=== PATIENT | female | born 1955 | race Caucasian/White ===

== ENCOUNTER 2021-03-08 11:23 | Inpatient (IN) ==
[2021-03-08] MEDS ORDERED: DEXAMETHASONE 10 MG/1 ML VIAL IV SCH (16:30)
[2021-03-08] MEDS ORDERED: PALONOSETRON 0.25 MG/5 ML VIAL IV SCH (16:30)
[2021-03-08] MEDS ORDERED: LEUCOVORIN IV ONE (17:00)
[2021-03-08] MEDS ORDERED: DEXTROSE 5% IV ONE ×2 (17:00)
[2021-03-08] MEDS ORDERED: OXALIPLATIN IV ONE (17:00)
[2021-03-08] MEDS ORDERED: FLUOROURACIL IV ONE (17:00)
[2021-03-09] MEDS ORDERED: MAGNESIUM HYDROXIDE SUSP 30 ML UDCUP PO PRN (00:31)
[2021-03-09] MEDS ORDERED: MYLANTA/LIDO VISC 2:1 300 ML BOTTLE SWISH/SWAL PRN (00:31)
[2021-03-09] MEDS ORDERED: diphenhydrAMINE CAP 25 MG CAPSULE PO PRN (00:31)
[2021-03-09] MEDS ORDERED: MYLANTA/LIDO VISC 2:1 300 ML BOTTLE SWISH/SPIT PRN (00:31)
[2021-03-09] MEDS ORDERED: ALPRAZolam 0.25 MG TABLET PO PRN (00:31)
[2021-03-09] MEDS ORDERED: guaiFENesin 200 MG/10 ML UDCUP PO PRN (00:31)
[2021-03-09] MEDS ORDERED: PROMETHAZINE INJ 25 MG in SODIUM CHLORIDE 0.9% 50 ML IV PRN (00:31)
[2021-03-09] MEDS ORDERED: chlorproMAZINE INJ 25 MG in SODIUM CHLORIDE 0.9% 100 ML IV PRN (00:31)
[2021-03-09] MEDS ORDERED: ALUMINUM/MAGNES/SIMETH MAX STR 30 ML UDCUP PO PRN (00:31)
[2021-03-09] MEDS ORDERED: ONDANSETRON 4 MG/2 ML VIAL IV PRN (00:31)
[2021-03-09] MEDS ORDERED: LACTULOSE 20 GM/30 ML UDCUP PO PRN (00:31)
[2021-03-09] MEDS ORDERED: BENZTROPINE 2 MG/2 ML AMP IV PRN (00:31)
[2021-03-09] MEDS ORDERED: traMADol 50 MG TABLET PO PRN (00:31)
[2021-03-09] MEDS ORDERED: ACETAMINOPHEN 325 MG TABLET PO PRN (00:31)
[2021-03-09] MEDS ORDERED: LOPERAMIDE 2 MG CAPSULE PO PRN (00:31)
[2021-03-09] MEDS ORDERED: chlorproMAZINE INJ 50 MG in SODIUM CHLORIDE 0.9% 100 ML IV PRN (00:31)
[2021-03-09] MEDS ORDERED: chlorproMAZINE 25 MG TABLET PO PRN (00:31)
[2021-03-09] MEDS: TEMAZEPAM 7.5 MG CAPSULE PO PRN ×2 (00:43→21:37)
[2021-03-09] MEDS: LOPERAMIDE 2 MG CAPSULE PO PRN ×3 (00:52→12:42)
[2021-03-09] MEDS ORDERED: ceFAZolin 2,000 MG/50 ML DUPLEX IV ONE (13:20)
[2021-03-10] MEDS ORDERED: ceFAZolin 2,000 MG/50 ML DUPLEX IV ONE (07:00)
[2021-03-10] MEDS ORDERED: LACTATED RINGERS 1,000 ML IV SCH (09:30)
[2021-03-10] MEDS ORDERED: ONDANSETRON 4 MG/2 ML VIAL ONE (10:08)
[2021-03-10] MEDS ORDERED: SODIUM CHLORIDE 0.9% 100 ML IV ONE (10:08)
[2021-03-10] MEDS ORDERED: propofoL 200 MG/20 ML VIAL IV ONE (10:08)
[2021-03-10] MEDS ORDERED: LIDOCAINE 2% 5 ML VIAL ONE (10:08)
[2021-03-10] MEDS ORDERED: MIDAZOLAM 2 MG/2 ML VIAL ONE (10:08)
[2021-03-10] MEDS ORDERED: fentaNYL 100 MCG/2 ML VIAL ONE (10:08)
[2021-03-10] MEDS ORDERED: TISSUE ADHESIVE 1 EACH APPLICATOR TOP ONE (10:11)
[2021-03-10] MEDS ORDERED: LIDOCAINE 1%/EPI INJ 20 ML VIAL ONE (10:11)
[2021-03-10] MEDS ORDERED: HEPARIN 5,000 UNIT/1 ML VIAL ONE (10:11)
[2021-03-10] MEDS ORDERED: BUPIVACAINE MPF 0.25% 30 ML VIAL ONE (10:11)
[2021-03-10] MEDS ORDERED: ePHEDrine 50 MG/ML VIAL ONE (10:38)
[2021-03-10] MEDS ORDERED: PHENYLEPHRINE 1 MG/10 ML SYRINGE IV ONE (10:45)
[2021-03-10 18:45] VITALS: BP 138/68
== END 2021-03-10 20:55 | disposition home or self-care (01) | DRG 829 ==
LOC: N.TELES 15:01
PROVIDERS: ADMIT Specialist; ATTEND Specialist

== ENCOUNTER 2021-04-05 13:57 | Inpatient (IN) ==
[2021-04-05] MEDS ORDERED: guaiFENesin 200 MG/10 ML UDCUP PO PRN (14:37)
[2021-04-05] MEDS ORDERED: ACETAMINOPHEN 325 MG TABLET PO PRN (14:37)
[2021-04-05] MEDS ORDERED: MYLANTA/LIDO VISC 2:1 300 ML BOTTLE SWISH/SPIT PRN (14:37)
[2021-04-05] MEDS ORDERED: PROMETHAZINE INJ 25 MG in SODIUM CHLORIDE 0.9% 50 ML IV PRN (14:37)
[2021-04-05] MEDS ORDERED: MAGNESIUM HYDROXIDE SUSP 30 ML UDCUP PO PRN (14:37)
[2021-04-05] MEDS ORDERED: diphenhydrAMINE CAP 25 MG CAPSULE PO PRN (14:37)
[2021-04-05] MEDS ORDERED: traMADol 50 MG TABLET PO PRN (14:37)
[2021-04-05] MEDS ORDERED: ALUMINUM/MAGNES/SIMETH MAX STR 30 ML UDCUP PO PRN (14:37)
[2021-04-05] MEDS ORDERED: ALPRAZolam 0.25 MG TABLET PO PRN (14:37)
[2021-04-05] MEDS ORDERED: LACTULOSE 20 GM/30 ML UDCUP PO PRN (14:37)
[2021-04-05] MEDS ORDERED: LOPERAMIDE 2 MG CAPSULE PO PRN (14:37)
[2021-04-05] MEDS ORDERED: ONDANSETRON 4 MG/2 ML VIAL IV PRN (14:37)
[2021-04-05] MEDS ORDERED: MYLANTA/LIDO VISC 2:1 300 ML BOTTLE SWISH/SWAL PRN (14:37)
[2021-04-05] MEDS ORDERED: DEXTROSE 5% IV ONE (15:00)
[2021-04-05] MEDS ORDERED: PALONOSETRON 0.25 MG/5 ML VIAL IV ONE (15:00)
[2021-04-05] MEDS ORDERED: OXALIPLATIN IV ONE (15:00)
[2021-04-05] MEDS ORDERED: LEUCOVORIN INJ 700 MG in DEXTROSE 5% 250 ML IV ONE (15:00)
[2021-04-05] MEDS ORDERED: DEXAMETHASONE 10 MG/1 ML VIAL IV SCH (15:00)
[2021-04-05] MEDS: LOPERAMIDE 2 MG CAPSULE PO PRN (21:07)
[2021-04-05] MEDS: TEMAZEPAM 7.5 MG CAPSULE PO PRN (21:07)
[2021-04-06] MEDS: ESCITALOPRAM 10 MG TABLET PO SCH (11:38)
[2021-04-06] MEDS: LOPERAMIDE 2 MG CAPSULE PO PRN ×2 (11:50→21:45)
[2021-04-06] MEDS: TEMAZEPAM 7.5 MG CAPSULE PO PRN (21:45)
[2021-04-07] MEDS: ESCITALOPRAM 10 MG TABLET PO SCH (09:52)
[2021-04-07] MEDS: LOPERAMIDE 2 MG CAPSULE PO PRN (09:55)
[2021-04-07 15:00] VITALS: BP 157/81
[2021-04-07] MEDS ORDERED: HEPARIN LOCK FLUSH 500 UNIT/5 ML SYRINGE IV ONE (15:28)
== END 2021-04-07 15:59 | disposition home or self-care (01) | DRG 375 ==
LOC: N.TELES 14:15
PROVIDERS: ADMIT Specialist; ATTEND Specialist

== ENCOUNTER 2021-04-19 10:12 | Inpatient (IN) ==
[2021-04-19] MEDS ORDERED: PALONOSETRON 0.25 MG/5 ML VIAL IV ONE (12:00)
[2021-04-19] MEDS ORDERED: DEXAMETHASONE 10 MG/1 ML VIAL IV ONE (12:00)
[2021-04-19] MEDS ORDERED: guaiFENesin 200 MG/10 ML UDCUP PO PRN (12:33)
[2021-04-19] MEDS ORDERED: ALPRAZolam 0.25 MG TABLET PO PRN (12:33)
[2021-04-19] MEDS ORDERED: chlorproMAZINE INJ 50 MG in SODIUM CHLORIDE 0.9% 100 ML IV PRN (12:33)
[2021-04-19] MEDS ORDERED: MAGNESIUM HYDROXIDE SUSP 30 ML UDCUP PO PRN (12:33)
[2021-04-19] MEDS ORDERED: ALUMINUM/MAGNES/SIMETH MAX STR 30 ML UDCUP PO PRN (12:33)
[2021-04-19] MEDS ORDERED: chlorproMAZINE INJ 25 MG in SODIUM CHLORIDE 0.9% 100 ML IV PRN (12:33)
[2021-04-19] MEDS ORDERED: LOPERAMIDE 2 MG CAPSULE PO PRN (12:33)
[2021-04-19] MEDS ORDERED: ONDANSETRON 4 MG/2 ML VIAL IV PRN (12:33)
[2021-04-19] MEDS ORDERED: LACTULOSE 20 GM/30 ML UDCUP PO PRN (12:33)
[2021-04-19] MEDS ORDERED: ACETAMINOPHEN 325 MG TABLET PO PRN (12:33)
[2021-04-19] MEDS ORDERED: traMADol 50 MG TABLET PO PRN (12:33)
[2021-04-19] MEDS ORDERED: chlorproMAZINE 25 MG TABLET PO PRN (12:33)
[2021-04-19] MEDS ORDERED: BENZTROPINE 2 MG/2 ML AMP IV PRN (12:33)
[2021-04-19] MEDS ORDERED: PROMETHAZINE INJ 25 MG in SODIUM CHLORIDE 0.9% 50 ML IV PRN (12:33)
[2021-04-19] MEDS ORDERED: MYLANTA/LIDO VISC 2:1 300 ML BOTTLE SWISH/SWAL PRN (12:33)
[2021-04-19] MEDS ORDERED: MYLANTA/LIDO VISC 2:1 300 ML BOTTLE SWISH/SPIT PRN (12:33)
[2021-04-19] MEDS ORDERED: OXALIPLATIN IV ONE (13:00)
[2021-04-19] MEDS ORDERED: LEUCOVORIN INJ 700 MG in DEXTROSE 5% 250 ML IV ONE (13:00)
[2021-04-19] MEDS ORDERED: FLUOROURACIL IV ONE (13:00)
[2021-04-19] MEDS ORDERED: DEXTROSE 5% IV ONE (13:00)
[2021-04-19] MEDS: diphenhydrAMINE CAP 25 MG CAPSULE PO PRN (15:39)
[2021-04-19] MEDS: TEMAZEPAM 7.5 MG CAPSULE PO PRN (20:52)
[2021-04-20 05:43] LABS: Basophils % 0.3 % (0.0-0.8); Hematocrit 29.7 VOL% (35.7-47.0); Hemoglobin 9.5 GM/DL (12.0-16.0); Immature Granulocytes % 0.3 %; Immature Granulocytes Absolute 0.01 #; Lymphocytes # 0.3 10*3/uL (1.4-4.0); Lymphocytes % 9.5 % (21.3-54.2); Mean Platelet Volume 9.9 FL (9.6-12.0); Monocytes % 6.7 % (1.7-12.7); Neutrophils % 83.2 % (38.7-73.9); Platelet Count 156 T/CUMM (130-400); Red Blood Count 3.23 MC/CUMM (3.8-5.5); Red Cell Distribution Width 17.4 % (9.3-17.3); White Blood Count 3.6 T/CUMM (4-12)
[2021-04-20 05:55] LABS: Alanine Aminotransferase 47 U/L (13-56); Albumin 2.9 G/DL (3.4-5.0); Alkaline Phosphatase 81 U/L (45-117); Aspartate Amino Transferase 39 U/L (0-37); Bilirubin,Total < 0.39 MG/DL (0.20-1.00); Blood Urea Nitrogen 16 MG/DL (7-18); Calcium 8.3 MG/DL (8.5-10.1); Carbon Dioxide 20 MMOL/L (21-32); Estimated Glom Filtration Rate 58 ML/MIN; Glucose 135 MG/DL (74-106); Potassium 4.2 MMOL/L (3.5-5.1); Sodium 136 MMOL/L (136-145); Total Protein 6.9 G/DL (6.4-8.2)
[2021-04-20] MEDS: diphenhydrAMINE CAP 25 MG CAPSULE PO PRN (17:30)
[2021-04-20] MEDS: TEMAZEPAM 7.5 MG CAPSULE PO PRN (21:04)
[2021-04-20] MEDS: LOPERAMIDE 2 MG CAPSULE PO PRN (21:04)
[2021-04-21 05:24] LABS: Basophils % 0.7 % (0.0-0.8); Eosinophils # 0.1 10*3/uL (0.0-0.87); Eosinophils % 2.2 % (0.00-10.9); Hematocrit 29.5 VOL% (35.7-47.0); Hemoglobin 9.2 GM/DL (12.0-16.0); Immature Granulocytes % 0.2 %; Immature Granulocytes Absolute 0.01 #; Lymphocytes # 0.9 10*3/uL (1.4-4.0); Mean Corpuscular HGB Conc 31.2 GM/DL (32-36); Mean Corpuscular Volume 94.6 FL (87-102); Monocytes % 10.1 % (1.7-12.7); Neutrophils % 63.8 % (38.7-73.9); Platelet Count 157 T/CUMM (130-400); Red Blood Count 3.12 MC/CUMM (3.8-5.5)
[2021-04-21 06:07] LABS: Albumin 2.7 G/DL (3.4-5.0); Bilirubin,Total 0.5 MG/DL (0.20-1.00); Calcium 8.6 MG/DL (8.5-10.1); Osmolality,Calculated 279.4 MOS/KG (273-304); Potassium 3.8 MMOL/L (3.5-5.1); Total Protein 6.4 G/DL (6.4-8.2)
[2021-04-21 06:16] LABS: Anisocytosis 1+; Elliptocytes 1+; Macrocytosis 1+; Platelet Estimate Adequate
[2021-04-21] MEDS: LOPERAMIDE 2 MG CAPSULE PO PRN (12:54)
[2021-04-21 16:42] VITALS: BP 145/86
== END 2021-04-21 17:49 | disposition home or self-care (01) | DRG 847 ==
LOC: N.TELES 10:31
PROVIDERS: ADMIT Specialist; ATTEND Specialist

== ENCOUNTER 2021-05-03 08:29 | Inpatient (IN) ==
[2021-05-03] MEDS ORDERED: DEXAMETHASONE 10 MG/1 ML VIAL IV ONE (14:00)
[2021-05-03] MEDS ORDERED: PALONOSETRON 0.25 MG/5 ML VIAL IV ONE (14:00)
[2021-05-03] MEDS ORDERED: LACTULOSE 20 GM/30 ML UDCUP PO PRN (14:09)
[2021-05-03] MEDS ORDERED: diphenhydrAMINE CAP 25 MG CAPSULE PO PRN (14:09)
[2021-05-03] MEDS ORDERED: ONDANSETRON 4 MG/2 ML VIAL IV PRN (14:09)
[2021-05-03] MEDS ORDERED: MYLANTA/LIDO VISC 2:1 300 ML BOTTLE SWISH/SPIT PRN (14:09)
[2021-05-03] MEDS ORDERED: ALPRAZolam 0.25 MG TABLET PO PRN (14:09)
[2021-05-03] MEDS ORDERED: LOPERAMIDE 2 MG CAPSULE PO PRN (14:09)
[2021-05-03] MEDS ORDERED: ACETAMINOPHEN 325 MG TABLET PO PRN (14:09)
[2021-05-03] MEDS ORDERED: guaiFENesin 200 MG/10 ML UDCUP PO PRN (14:09)
[2021-05-03] MEDS ORDERED: MAGNESIUM HYDROXIDE SUSP 30 ML UDCUP PO PRN (14:09)
[2021-05-03] MEDS ORDERED: PROMETHAZINE INJ 25 MG in SODIUM CHLORIDE 0.9% 50 ML IV PRN (14:09)
[2021-05-03] MEDS ORDERED: traMADol 50 MG TABLET PO PRN (14:09)
[2021-05-03] MEDS ORDERED: MYLANTA/LIDO VISC 2:1 300 ML BOTTLE SWISH/SWAL PRN (14:09)
[2021-05-03] MEDS ORDERED: ALUMINUM/MAGNES/SIMETH MAX STR 30 ML UDCUP PO PRN (14:09)
[2021-05-03] MEDS ORDERED: LEUCOVORIN INJ 700 MG in DEXTROSE 5% 250 ML IV ONE (15:00)
[2021-05-03] MEDS ORDERED: FLUOROURACIL IV ONE ×2 (15:00→19:00)
[2021-05-03] MEDS: LOPERAMIDE 2 MG CAPSULE PO PRN (21:31)
[2021-05-03] MEDS: TEMAZEPAM 7.5 MG CAPSULE PO PRN (21:31)
[2021-05-04] MEDS: LOPERAMIDE 2 MG CAPSULE PO PRN ×2 (10:21→21:34)
[2021-05-04] MEDS: TEMAZEPAM 7.5 MG CAPSULE PO PRN (21:34)
[2021-05-05] MEDS ORDERED: ESCITALOPRAM 10 MG TABLET PO ONE (08:10)
[2021-05-05 19:34] VITALS: BP 139/77
[2021-05-05] MEDS ORDERED: HEPARIN LOCK FLUSH 500 UNIT/5 ML SYRINGE IV ONE (19:43)
== END 2021-05-05 20:30 | disposition home or self-care (01) | DRG 847 ==
LOC: N.TELES 12:11
PROVIDERS: ADMIT Specialist; ATTEND Specialist

== ENCOUNTER 2021-05-16 10:15 | Inpatient (IN) ==
[2021-05-16] MEDS ORDERED: FLUOROURACIL IV SCH (21:00)
[2021-05-16] MEDS ORDERED: DEXAMETHASONE 10 MG/1 ML VIAL IV ONE (21:00)
[2021-05-16] MEDS ORDERED: LEUCOVORIN INJ 700 MG in DEXTROSE 5% 250 ML IV ONE (21:00)
[2021-05-16] MEDS ORDERED: PALONOSETRON 0.25 MG/5 ML VIAL IV ONE (21:00)
[2021-05-17] MEDS: diphenhydrAMINE CAP 25 MG CAPSULE PO PRN (23:12)
[2021-05-18] MEDS: diphenhydrAMINE CAP 25 MG CAPSULE PO PRN ×2 (08:48→15:31)
[2021-05-18 11:47] VITALS: BP 134/71
== END 2021-05-18 16:17 | disposition home or self-care (01) | DRG 847 ==
LOC: N.TELES → OBSVTOIN 15:01
PROVIDERS: ADMIT Specialist; ATTEND Specialist

== ENCOUNTER 2021-12-17 13:50 | Inpatient (IN) ==
[2021-12-17] MEDS ORDERED: MORPHINE 2 MG/1 ML SYRINGE IV STA (14:24)
[2021-12-17] MEDS ORDERED: ONDANSETRON 4 MG/2 ML VIAL IV STA (14:24)
[2021-12-17] MEDS ORDERED: SODIUM CHLORIDE 0.9% 1,000 ML IV STA ×2 (14:24→16:01)
[2021-12-17 14:36] LABS: Basophils % 0.6 % (0.0-0.8); Eosinophils # 0.1 10*3/uL (0.0-0.87); Eosinophils % 1.9 % (0.00-10.9); Hematocrit 29.2 VOL% (35.7-47.0); Hemoglobin 10.1 GM/DL (12.0-16.0); Immature Granulocytes % 0.8 %; Immature Granulocytes Absolute 0.04 #; Lymphocytes # 0.7 10*3/uL (1.4-4.0); Mean Corpuscular HGB Conc 34.6 GM/DL (32-36); Mean Corpuscular Volume 98.3 FL (87-102); Mean Platelet Volume 10.3 FL (9.6-12.0); Monocytes # 0.7 10*3/uL (0.11-0.8); Monocytes % 13.2 % (1.7-12.7); Neutrophils % 70.5 % (38.7-73.9); Platelet Count 136 T/CUMM (130-400); Red Blood Count 2.97 MC/CUMM (3.8-5.5); Red Cell Distribution Width 15.9 % (9.3-17.3); White Blood Count 5.2 T/CUMM (4-12)
[2021-12-17 14:55] LABS: PT Patient Result 10.9 SECS (10.1-12.1); Partial Thromboplastin Time 33.4 SECS (23.7-32.9)
[2021-12-17 15:15] LABS: Calcium 9.9 MG/DL (8.5-10.1)
[2021-12-17 15:16] LABS: Albumin 4.3 G/DL (3.4-5.0); Bilirubin,Total 0.4 MG/DL (0.20-1.00); Osmolality,Calculated 266.8 MOS/KG (273-304); Potassium 5.2 MMOL/L (3.5-5.1)
[2021-12-17 16:30] LABS: Bacteria,Urine Many /HPF (Few); Bilirubin,Urine Negative (Negative); Blood, Urine Small mg/dL (Negative); Glucose,Urine (UA) Negative (Negative); Hyaline Casts,Urine 55 /LPF (0-3); Ketones,Urine Negative (Negative); Mucus,Urine Occasional /LPF (Occasional); Nitrite,Urine Negative (Negative); Protein,Urine 30 mg/dL (Negative); RBC,Urine 6 /HPF (0-4); Squamous Epithelial Cell,Urine Occasional /HPF (0-10); Transitional Epi Cells,Urine Occasional /HPF (<1); Urine Appearance CLOUDY (Clear); Urine Color Yellow (Yellow); Urine Specific Gravity 1.013 (1.001-1.035); Urine Urobilinogen < 2.0 eU/dL (<2.0)
[2021-12-17] MEDS ORDERED: hydrALAZINE 20 MG/1 ML VIAL IV PRN (17:06)
[2021-12-17] MEDS ORDERED: ONDANSETRON 4 MG/2 ML VIAL IV PRN (17:06)
[2021-12-17] MEDS ORDERED: PROMETHAZINE 25 MG/1 ML VIAL IM PRN (17:06)
[2021-12-17] MEDS ORDERED: ALBUTEROL/IPRATROPIUM 3 ML NEB RESP TX PRN (17:06)
[2021-12-17] MEDS ORDERED: ACETAMINOPHEN 325 MG TABLET PO PRN (17:06)
[2021-12-17] MEDS: ENOXAPARIN 30 MG/0.3 ML SYRINGE SUBCUT SCH (17:44)
[2021-12-17] MEDS: DEXTROSE 5% NACL 0.9% 1,000 ML IV SCH (18:48)
[2021-12-17 19:44] LABS: Folate > 24.00 NG/ML (5.38-24.0); Vitamin B12 > 2000 PG/ML (211-911)
[2021-12-17 20:07] LABS: % Iron Saturation 15.1 % (18-50)
[2021-12-17] MEDS: cefTRIAXone 1,000 MG in SODIUM CHLORIDE 0.9% 100 ML IV SCH (21:04)
[2021-12-18] MEDS: DEXTROSE 5% NACL 0.9% 1,000 ML IV SCH ×2 (02:55→13:25)
[2021-12-18 05:58] LABS: Basophils % 0.6 % (0.0-0.8); Eosinophils # 0.2 10*3/uL (0.0-0.87); Eosinophils % 5.4 % (0.00-10.9); Hematocrit 20.2 VOL% (35.7-47.0); Hemoglobin 6.8 GM/DL (12.0-16.0); Immature Granulocytes % 0.9 %; Immature Granulocytes Absolute 0.03 #; Lymphocytes # 0.5 10*3/uL (1.4-4.0); Lymphocytes % 14.7 % (21.3-54.2); Mean Corpuscular HGB Conc 33.7 GM/DL (32-36); Mean Corpuscular Volume 100.5 FL (87-102); Mean Platelet Volume 10.1 FL (9.6-12.0); Monocytes # 0.5 10*3/uL (0.11-0.8); Monocytes % 15.9 % (1.7-12.7); Neutrophils % 62.5 % (38.7-73.9); Platelet Count 93 T/CUMM (130-400); Red Blood Count 2.01 MC/CUMM (3.8-5.5); Red Cell Distribution Width 15.9 % (9.3-17.3); White Blood Count 3.3 T/CUMM (4-12)
[2021-12-18 06:26] LABS: Alanine Aminotransferase 26 U/L (13-56); Albumin 2.9 G/DL (3.4-5.0); Alkaline Phosphatase 109 U/L (45-117); Aspartate Amino Transferase 17 U/L (0-37); Bilirubin,Total < 0.39 MG/DL (0.20-1.00); Blood Urea Nitrogen 55 MG/DL (7-18); Calcium 8.3 MG/DL (8.5-10.1); Carbon Dioxide 16 MMOL/L (21-32); Chloride 105 MMOL/L (98-107); Cholesterol 169 MG/DL (50-200); Glucose 108 MG/DL (74-106); HDL Cholesterol 51 MG/DL (40-60); Osmolality,Calculated 283.2 MOS/KG (273-304); Potassium 3.7 MMOL/L (3.5-5.1); Risk Ratio 3.31; Sodium 134 MMOL/L (136-145); Total Protein 7.1 G/DL (6.4-8.2); Triglycerides 183 MG/DL (2-150); VLDL Cholesterol 36.6 MG/DL
[2021-12-18 06:33] LABS: Band Neutrophils 5 % (0-10); Eosinophils 1 % (0-10); Lymphocytes 16 % (20-55); Total Cells Counted 100
[2021-12-18 06:34] LABS: Macrocytosis Slight; Ovalocytes Slight
[2021-12-18 06:37] LABS: Platelet Estimate Decreased
[2021-12-18] MEDS: PANTOPRAZOLE 40 MG VIAL IV SCH (08:54)
[2021-12-18 12:24] LABS: Hematocrit 21.8 VOL% (35.7-47.0); Hemoglobin 7.4 GM/DL (12.0-16.0)
[2021-12-18] MEDS ORDERED: SODIUM CHLORIDE 0.9% 1,000 ML IV PRN (12:54)
[2021-12-18 14:13] LABS: Basophils % 0.3 % (0.0-0.8); Eosinophils # 0.2 10*3/uL (0.0-0.87); Eosinophils % 6.3 % (0.00-10.9); Hematocrit 19.8 VOL% (35.7-47.0); Hemoglobin 6.7 GM/DL (12.0-16.0); Immature Granulocytes % 1.7 %; Immature Granulocytes Absolute 0.05 #; Lymphocytes # 0.4 10*3/uL (1.4-4.0); Lymphocytes % 12.5 % (21.3-54.2); Mean Corpuscular HGB Conc 33.8 GM/DL (32-36); Mean Corpuscular Volume 101.5 FL (87-102); Mean Platelet Volume 10.2 FL (9.6-12.0); Monocytes # 0.4 10*3/uL (0.11-0.8); Monocytes % 12.5 % (1.7-12.7); Neutrophils % 66.7 % (38.7-73.9); Platelet Count 100 T/CUMM (130-400); Red Blood Count 1.95 MC/CUMM (3.8-5.5); Red Cell Distribution Width 16.2 % (9.3-17.3)
[2021-12-18 14:38] LABS: Anisocytosis 1+; Platelet Estimate Decreased
[2021-12-18] MEDS: ENOXAPARIN 30 MG/0.3 ML SYRINGE SUBCUT SCH (18:20)
[2021-12-18] MEDS: FERROUS SULFATE 325 MG TABLET PO SCH (20:57)
[2021-12-18] MEDS: cefTRIAXone 1,000 MG in SODIUM CHLORIDE 0.9% 100 ML IV SCH (20:58)
[2021-12-18] MEDS ORDERED: MORPHINE 2 MG/1 ML SYRINGE IV ONE (23:51)
[2021-12-19 06:04] LABS: Basophils % 0.5 % (0.0-0.8); Eosinophils # 0.3 10*3/uL (0.0-0.87); Eosinophils % 7.3 % (0.00-10.9); Hematocrit 30.4 VOL% (35.7-47.0); Hemoglobin 10.3 GM/DL (12.0-16.0); Immature Granulocytes % 0.8 %; Immature Granulocytes Absolute 0.03 #; Lymphocytes # 0.6 10*3/uL (1.4-4.0); Lymphocytes % 15.2 % (21.3-54.2); Mean Corpuscular HGB Conc 33.9 GM/DL (32-36); Mean Corpuscular Volume 96.5 FL (87-102); Mean Platelet Volume 10.2 FL (9.6-12.0); Monocytes # 0.5 10*3/uL (0.11-0.8); Monocytes % 13.9 % (1.7-12.7); Neutrophils % 62.3 % (38.7-73.9); Platelet Count 93 T/CUMM (130-400); Red Blood Count 3.15 MC/CUMM (3.8-5.5); Red Cell Distribution Width 17.2 % (9.3-17.3); White Blood Count 3.8 T/CUMM (4-12)
[2021-12-19 06:25] LABS: Alanine Aminotransferase 24 U/L (13-56); Albumin 2.7 G/DL (3.4-5.0); Alkaline Phosphatase 108 U/L (45-117); Aspartate Amino Transferase 16 U/L (0-37); Bilirubin,Total < 0.39 MG/DL (0.20-1.00); Blood Urea Nitrogen 35 MG/DL (7-18); Calcium 8.4 MG/DL (8.5-10.1); Carbon Dioxide 19 MMOL/L (21-32); Chloride 112 MMOL/L (98-107); Glucose 97 MG/DL (74-106); Osmolality,Calculated 286.4 MOS/KG (273-304); Potassium 3.6 MMOL/L (3.5-5.1); Sodium 140 MMOL/L (136-145); Total Protein 6.8 G/DL (6.4-8.2)
[2021-12-19 06:26] LABS: Anisocytosis 1+; Platelet Estimate Decreased
[2021-12-19 06:27] LABS: Burr Cells Few
[2021-12-19] MEDS: PANTOPRAZOLE 40 MG VIAL IV SCH (09:09)
[2021-12-19] MEDS: ESCITALOPRAM 10 MG TABLET PO SCH (09:09)
[2021-12-19] MEDS: SODIUM CHLORIDE 0.9% 1,000 ML IV SCH ×2 (09:10→21:57)
[2021-12-19] MEDS: DEXTROSE 5% NACL 0.9% 1,000 ML IV SCH (09:11)
[2021-12-19] MEDS: POLYETHYLENE GLYCOL POWDER 17 GM PACK PO SCH (14:03)
[2021-12-19] MEDS: DICYCLOMINE 10 MG CAPSULE PO SCH ×2 (14:03→21:58)
[2021-12-19] MEDS: cefTRIAXone 1,000 MG in SODIUM CHLORIDE 0.9% 100 ML IV SCH (21:57)
[2021-12-19] MEDS: FERROUS SULFATE 325 MG TABLET PO SCH (21:58)
[2021-12-20 05:23] LABS: Basophils % 0.4 % (0.0-0.8); Eosinophils # 0.3 10*3/uL (0.0-0.87); Eosinophils % 5.8 % (0.00-10.9); Hematocrit 28.8 VOL% (35.7-47.0); Hemoglobin 9.5 GM/DL (12.0-16.0); Immature Granulocytes % 1.5 %; Immature Granulocytes Absolute 0.08 #; Lymphocytes # 0.7 10*3/uL (1.4-4.0); Lymphocytes % 12.9 % (21.3-54.2); Mean Corpuscular Volume 101.4 FL (87-102); Mean Platelet Volume 10.1 FL (9.6-12.0); Monocytes # 0.8 10*3/uL (0.11-0.8); Monocytes % 14.8 % (1.7-12.7); Neutrophils % 64.6 % (38.7-73.9); Platelet Count 100 T/CUMM (130-400); Red Blood Count 2.84 MC/CUMM (3.8-5.5); Red Cell Distribution Width 17.8 % (9.3-17.3); White Blood Count 5.2 T/CUMM (4-12)
[2021-12-20 05:41] LABS: Alanine Aminotransferase 25 U/L (13-56); Albumin 2.5 G/DL (3.4-5.0); Alkaline Phosphatase 101 U/L (45-117); Aspartate Amino Transferase 21 U/L (0-37); Bilirubin,Total < 0.39 MG/DL (0.20-1.00); Blood Urea Nitrogen 20 MG/DL (7-18); Calcium 8.2 MG/DL (8.5-10.1); Carbon Dioxide 18 MMOL/L (21-32); Chloride 115 MMOL/L (98-107); Glucose 81 MG/DL (74-106); Osmolality,Calculated 284.1 MOS/KG (273-304); Potassium 3.6 MMOL/L (3.5-5.1); Sodium 142 MMOL/L (136-145); Total Protein 6.3 G/DL (6.4-8.2)
[2021-12-20] MEDS: PANTOPRAZOLE 40 MG VIAL IV SCH ×2 (07:57→09:24)
[2021-12-20] MEDS ORDERED: diphenhydrAMINE CAP 25 MG CAPSULE PO PRN (08:13)
[2021-12-20] MEDS: ESCITALOPRAM 10 MG TABLET PO SCH (09:11)
[2021-12-20] MEDS: DICYCLOMINE 10 MG CAPSULE PO SCH ×2 (09:11→14:47)
[2021-12-20] MEDS: POLYETHYLENE GLYCOL POWDER 17 GM PACK PO SCH (09:11)
[2021-12-20] MEDS: SODIUM CHLORIDE 0.9% 1,000 ML IV SCH (11:29)
[2021-12-20 12:37] VITALS: BP 132/71
== END 2021-12-20 15:20 | disposition home or self-care (01) | DRG 682 ==
LOC: N.ED 13:50 → N.EDINP 17:06 → N.TELES 18:35
PROVIDERS: ADMIT Hospitalist; ATTEND Hospitalist

== ENCOUNTER 2021-12-25 11:54 | Inpatient (IN) ==
[2021-12-25] MEDS ORDERED: SODIUM CHLORIDE 0.9% 1,000 ML IV STA (14:58)
[2021-12-25] MEDS ORDERED: ONDANSETRON 4 MG/2 ML VIAL IV STA (14:58)
[2021-12-25 15:11] LABS: Basophils % 0.3 % (0.0-0.8); Eosinophils # 0.2 10*3/uL (0.0-0.87); Eosinophils % 1.6 % (0.00-10.9); Hematocrit 35.4 VOL% (35.7-47.0); Hemoglobin 12.4 GM/DL (12.0-16.0); Immature Granulocytes % 1.8 %; Immature Granulocytes Absolute 0.17 #; Lymphocytes # 1.4 10*3/uL (1.4-4.0); Lymphocytes % 14.4 % (21.3-54.2); Mean Corpuscular Volume 95.7 FL (87-102); Monocytes % 10.8 % (1.7-12.7); Neutrophils % 71.1 % (38.7-73.9); Platelet Count 195 T/CUMM (130-400); Red Cell Distribution Width 16.3 % (9.3-17.3); White Blood Count 9.4 T/CUMM (4-12)
[2021-12-25 15:48] LABS: Albumin 3.5 G/DL (3.4-5.0); Bilirubin,Total 0.4 MG/DL (0.20-1.00); Calcium 9.5 MG/DL (8.5-10.1); Osmolality,Calculated 263.6 MOS/KG (273-304); Potassium 3.6 MMOL/L (3.5-5.1); Total Protein 8.6 G/DL (6.4-8.2)
[2021-12-25] MEDS ORDERED: DOCUSATE SODIUM 100 MG CAPSULE PO PRN (17:20)
[2021-12-25] MEDS ORDERED: ONDANSETRON 4 MG/2 ML VIAL IV PRN (17:20)
[2021-12-25] MEDS ORDERED: hydrALAZINE 20 MG/1 ML VIAL IV PRN (17:20)
[2021-12-25] MEDS ORDERED: ALBUTEROL 2.5 MG/3 ML NEB RESP TX PRN (17:20)
[2021-12-25] MEDS ORDERED: ACETAMINOPHEN 325 MG TABLET PO PRN (17:20)
[2021-12-25] MEDS ORDERED: PROMETHAZINE 25 MG/1 ML VIAL IM PRN (17:20)
[2021-12-25] MEDS ORDERED: DICYCLOMINE 10 MG CAPSULE PO PRN (17:31)
[2021-12-25 18:11] LABS: Basophils % 0.4 % (0.0-0.8); Eosinophils # 0.2 10*3/uL (0.0-0.87); Eosinophils % 1.9 % (0.00-10.9); Hematocrit 32.1 VOL% (35.7-47.0); Hemoglobin 10.8 GM/DL (12.0-16.0); Immature Granulocytes % 1.4 %; Immature Granulocytes Absolute 0.11 #; Lymphocytes # 1.5 10*3/uL (1.4-4.0); Lymphocytes % 18.1 % (21.3-54.2); Mean Corpuscular HGB Conc 33.6 GM/DL (32-36); Mean Corpuscular Volume 95.8 FL (87-102); Mean Platelet Volume 9.7 FL (9.6-12.0); Monocytes % 12.4 % (1.7-12.7); Neutrophils % 65.8 % (38.7-73.9); Platelet Count 169 T/CUMM (130-400); Red Blood Count 3.35 MC/CUMM (3.8-5.5); Red Cell Distribution Width 16.3 % (9.3-17.3); White Blood Count 8.1 T/CUMM (4-12)
[2021-12-25 18:23] LABS: Alanine Aminotransferase 26 U/L (13-56); Albumin 3.1 G/DL (3.4-5.0); Alkaline Phosphatase 115 U/L (45-117); Aspartate Amino Transferase 21 U/L (0-37); Bilirubin,Total < 0.39 MG/DL (0.20-1.00); Blood Urea Nitrogen 51 MG/DL (7-18); Calcium 8.5 MG/DL (8.5-10.1); Carbon Dioxide 18 MMOL/L (21-32); Chloride 93 MMOL/L (98-107); Glucose 77 MG/DL (74-106); Osmolality,Calculated 265.4 MOS/KG (273-304); Potassium 3.4 MMOL/L (3.5-5.1); Sodium 126 MMOL/L (136-145); Total Protein 7.5 G/DL (6.4-8.2)
[2021-12-25] MEDS ORDERED: FERROUS SULFATE 325 MG TABLET PO SCH (21:00)
[2021-12-25] MEDS: ENOXAPARIN 30 MG/0.3 ML SYRINGE SUBCUT SCH (21:29)
[2021-12-25] MEDS: ASCORBIC ACID 500 MG TABLET PO SCH (21:29)
[2021-12-25] MEDS: LACTATED RINGERS 1,000 ML IV SCH (21:48)
[2021-12-25 21:58] LABS: Bacteria,Urine Occasional /HPF (Few); Bilirubin,Urine Negative (Negative); Blood, Urine Negative (Negative); Glucose,Urine (UA) Negative (Negative); Ketones,Urine Negative (Negative); Nitrite,Urine Negative (Negative); Protein,Urine Negative (Negative); RBC,Urine <1 /HPF (0-4); Squamous Epithelial Cell,Urine Occasional /HPF (0-10); Urine Appearance CLEAR (Clear); Urine Color Yellow (Yellow); Urine Specific Gravity 1.012 (1.001-1.035); Urine Urobilinogen < 2.0 eU/dL (<2.0)
[2021-12-26 05:03] LABS: Basophils % 0.4 % (0.0-0.8); Eosinophils # 0.3 10*3/uL (0.0-0.87); Eosinophils % 3.6 % (0.00-10.9); Hematocrit 30.7 VOL% (35.7-47.0); Hemoglobin 10.5 GM/DL (12.0-16.0); Immature Granulocytes % 0.9 %; Immature Granulocytes Absolute 0.06 #; Lymphocytes # 1.3 10*3/uL (1.4-4.0); Mean Corpuscular HGB Conc 34.2 GM/DL (32-36); Mean Corpuscular Volume 95.6 FL (87-102); Mean Platelet Volume 9.6 FL (9.6-12.0); Monocytes # 1.1 10*3/uL (0.11-0.8); Monocytes % 15.3 % (1.7-12.7); Neutrophils % 60.8 % (38.7-73.9); Platelet Count 157 T/CUMM (130-400); Red Blood Count 3.21 MC/CUMM (3.8-5.5)
[2021-12-26 05:48] LABS: Alanine Aminotransferase 24 U/L (13-56); Albumin 3.1 G/DL (3.4-5.0); Alkaline Phosphatase 121 U/L (45-117); Aspartate Amino Transferase 23 U/L (0-37); Bilirubin,Total < 0.39 MG/DL (0.20-1.00); Blood Urea Nitrogen 51 MG/DL (7-18); Calcium 8.9 MG/DL (8.5-10.1); Carbon Dioxide 18 MMOL/L (21-32); Chloride 94 MMOL/L (98-107); Glucose 80 MG/DL (74-106); Osmolality,Calculated 269.1 MOS/KG (273-304); Potassium 3.1 MMOL/L (3.5-5.1); Sodium 128 MMOL/L (136-145); Total Protein 7.3 G/DL (6.4-8.2)
[2021-12-26] MEDS: LACTATED RINGERS 1,000 ML IV SCH (07:16)
[2021-12-26] MEDS ORDERED: POTASSIUM CHLORIDE 20 MEQ TABLET PO ONE (08:10)
[2021-12-26] MEDS: ESCITALOPRAM 10 MG TABLET PO SCH (08:43)
[2021-12-26] MEDS: PANTOPRAZOLE 40 MG VIAL IV SCH (08:43)
[2021-12-26] MEDS: SODIUM CHLORIDE 0.9% 1,000 ML IV SCH ×2 (08:46→17:02)
[2021-12-26] MEDS ORDERED: DEXAMETHASONE 10 MG/1 ML VIAL IV ONE (08:50)
[2021-12-26] MEDS ORDERED: DEXAMETHASONE INJ 10 MG in SODIUM CHLORIDE 0.9% 50 ML IV ONE (10:30)
[2021-12-26] MEDS: CHOLESTYRAMINE 4 GM PACK PO SCH ×2 (11:13→21:26)
[2021-12-26] MEDS ORDERED: SODIUM BICARBONATE 50 MEQ/50 ML VIAL IV ONE (13:54)
[2021-12-26] MEDS ORDERED: SODIUM BICARB INJ 50 MEQ in DEXTROSE 5% 50 ML IV ONE (15:00)
[2021-12-26] MEDS: ASCORBIC ACID 500 MG TABLET PO SCH (21:26)
[2021-12-26] MEDS: ENOXAPARIN 30 MG/0.3 ML SYRINGE SUBCUT SCH (21:27)
[2021-12-27] MEDS: SODIUM CHLORIDE 0.9% 1,000 ML IV SCH ×3 (00:59→18:42)
[2021-12-27 05:05] LABS: Calcium 7.9 MG/DL (8.5-10.1); Osmolality,Calculated 279.1 MOS/KG (273-304); Potassium 3.3 MMOL/L (3.5-5.1)
[2021-12-27 05:12] LABS: Basophils % 0.2 % (0.0-0.8); Hematocrit 26.1 VOL% (35.7-47.0); Immature Granulocytes % 0.9 %; Immature Granulocytes Absolute 0.05 #; Lymphocytes # 0.7 10*3/uL (1.4-4.0); Lymphocytes % 12.7 % (21.3-54.2); Mean Corpuscular HGB Conc 34.5 GM/DL (32-36); Mean Corpuscular Volume 96.3 FL (87-102); Mean Platelet Volume 9.3 FL (9.6-12.0); Monocytes # 0.6 10*3/uL (0.11-0.8); Monocytes % 11.5 % (1.7-12.7); Neutrophils % 74.7 % (38.7-73.9); Platelet Count 130 T/CUMM (130-400); Red Blood Count 2.71 MC/CUMM (3.8-5.5); Red Cell Distribution Width 15.9 % (9.3-17.3); White Blood Count 5.4 T/CUMM (4-12)
[2021-12-27] MEDS ORDERED: POTASSIUM CHLORIDE 20 MEQ TABLET PO ONE (08:09)
[2021-12-27] MEDS: PANTOPRAZOLE 40 MG VIAL IV SCH (08:15)
[2021-12-27] MEDS: ESCITALOPRAM 10 MG TABLET PO SCH (09:11)
[2021-12-27] MEDS: CHOLESTYRAMINE 4 GM PACK PO SCH ×2 (09:11→20:30)
[2021-12-27] MEDS: ASCORBIC ACID 500 MG TABLET PO SCH (20:30)
[2021-12-28] MEDS: SODIUM CHLORIDE 0.9% 1,000 ML IV SCH ×2 (04:05→16:55)
[2021-12-28] MEDS ORDERED: LACTATED RINGERS 1,000 ML IV SCH (08:00)
[2021-12-28 08:10] LABS: Basophils # 0.1 10*3/uL (0.0-0.2); Eosinophils # 0.1 10*3/uL (0.0-0.87); Eosinophils % 1.4 % (0.00-10.9); Hematocrit 27.4 VOL% (35.7-47.0); Hemoglobin 8.9 GM/DL (12.0-16.0); Immature Granulocytes % 0.8 %; Immature Granulocytes Absolute 0.05 #; Lymphocytes # 0.9 10*3/uL (1.4-4.0); Mean Corpuscular HGB Conc 32.5 GM/DL (32-36); Mean Corpuscular Volume 102.6 FL (87-102); Monocytes # 0.6 10*3/uL (0.11-0.8); Monocytes % 10.2 % (1.7-12.7); Neutrophils % 71.6 % (38.7-73.9); Platelet Count 129 T/CUMM (130-400); Red Blood Count 2.67 MC/CUMM (3.8-5.5); Red Cell Distribution Width 16.9 % (9.3-17.3); White Blood Count 6.3 T/CUMM (4-12)
[2021-12-28 08:16] LABS: Calcium 8.2 MG/DL (8.5-10.1); Osmolality,Calculated 287.8 MOS/KG (273-304); Potassium 3.7 MMOL/L (3.5-5.1)
[2021-12-28] MEDS ORDERED: POTASSIUM CHLORIDE 20 MEQ TABLET PO SCH (09:00)
[2021-12-28] MEDS ORDERED: propofoL 200 MG/20 ML VIAL IV ONE (11:17)
[2021-12-28] MEDS: CHOLESTYRAMINE 4 GM PACK PO SCH (14:40)
[2021-12-28] MEDS: PANTOPRAZOLE 40 MG VIAL IV SCH (14:42)
[2021-12-28] MEDS: ESCITALOPRAM 10 MG TABLET PO SCH (14:51)
[2021-12-28 19:09] VITALS: BP 132/83
== END 2021-12-28 16:35 | disposition home or self-care (01) | DRG 683 ==
LOC: N.ED 11:54 → N.EDINP 17:20 → SUATTDRO 17:20 → N.TELES 20:53
PROVIDERS: ADMIT Family Medicine; ATTEND Internal Medicine

== ENCOUNTER 2022-01-13 11:12 | Inpatient (IN) ==
[2022-01-13] MEDS ORDERED: SODIUM CHLORIDE 0.9% 1,000 ML IV STA ×2 (11:47→13:13)
[2022-01-13] MEDS ORDERED: ONDANSETRON 4 MG/2 ML VIAL IV STA (11:47)
[2022-01-13] MEDS ORDERED: HYDROmorphone 1 MG/1 ML SYRINGE IV STA ×2 (11:47→13:13)
[2022-01-13 12:23] LABS: Basophils % 0.3 % (0.0-0.8); Eosinophils # 0.1 10*3/uL (0.0-0.87); Eosinophils % 0.5 % (0.00-10.9); Hematocrit 35.8 VOL% (35.7-47.0); Hemoglobin 12.5 GM/DL (12.0-16.0); Immature Granulocytes % 1.3 %; Immature Granulocytes Absolute 0.17 #; Lymphocytes # 1.2 10*3/uL (1.4-4.0); Lymphocytes % 9.2 % (21.3-54.2); Mean Corpuscular HGB Conc 34.9 GM/DL (32-36); Mean Corpuscular Volume 92.7 FL (87-102); Mean Platelet Volume 9.9 FL (9.6-12.0); Monocytes # 0.9 10*3/uL (0.11-0.8); Monocytes % 6.5 % (1.7-12.7); Neutrophils % 82.2 % (38.7-73.9); Platelet Count 215 T/CUMM (130-400); Red Blood Count 3.86 MC/CUMM (3.8-5.5); White Blood Count 13.1 T/CUMM (4-12)
[2022-01-13 12:40] LABS: Albumin 4.3 G/DL (3.4-5.0); Bilirubin,Total 0.5 MG/DL (0.20-1.00); Calcium 10.5 MG/DL (8.5-10.1); Osmolality,Calculated 273.9 MOS/KG (273-304); Potassium 4.1 MMOL/L (3.5-5.1); Total Protein 10.1 G/DL (6.4-8.2)
[2022-01-13 13:11] LABS: Bilirubin,Urine Negative (Negative); Blood, Urine Negative (Negative); Glucose,Urine (UA) Negative (Negative); Hyaline Casts,Urine 7 /LPF (0-3); Ketones,Urine Negative (Negative); Nitrite,Urine Negative (Negative); Protein,Urine Negative (Negative); Squamous Epithelial Cell,Urine Occasional /HPF (0-10); Urine Appearance Clear (Clear); Urine Color Yellow (Yellow); Urine Specific Gravity 1.025 (1.001-1.035); Urine Urobilinogen 0.2 eU/dL (<2.0); Urine pH 5.5 (4.5-8.0)
[2022-01-13] MEDS ORDERED: PROMETHAZINE 25 MG/1 ML VIAL IV PRN (13:56)
[2022-01-13] MEDS ORDERED: ONDANSETRON 4 MG/2 ML VIAL IV PRN (13:56)
[2022-01-13] MEDS ORDERED: hydrALAZINE 20 MG/1 ML VIAL IV PRN (13:56)
[2022-01-13] MEDS ORDERED: ACETAMINOPHEN 325 MG TABLET PO PRN (13:56)
[2022-01-13] MEDS ORDERED: ALBUTEROL/IPRATROPIUM 3 ML NEB RESP TX PRN (13:56)
[2022-01-13] MEDS ORDERED: SODIUM BICARBONATE 50 MEQ/50 ML VIAL IV ONE (13:59)
[2022-01-13] MEDS ORDERED: MAGNESIUM SULF RIDER 2 GM/50 ML PREMIX IV PRN (14:01)
[2022-01-13] MEDS ORDERED: MAGNESIUM SULF RIDER 4 GM/100 ML PREMIX IV PRN (14:01)
[2022-01-13] MEDS ORDERED: PROMETHAZINE INJ 25 MG in SODIUM CHLORIDE 0.9% 50 ML IV PRN (14:38)
[2022-01-13] MEDS: DEXTROSE 5% NACL 0.45% 1,000 ML IV SCH (18:21)
[2022-01-13] MEDS: CHOLESTYRAMINE/ASPARTAME 4 GM PACK PO SCH (22:18)
[2022-01-14] MEDS: DEXTROSE 5% NACL 0.45% 1,000 ML IV SCH ×5 (03:05→14:55)
[2022-01-14 06:28] LABS: Basophils % 0.4 % (0.0-0.8)
[2022-01-14 06:46] LABS: Basophils # 0.1 10*3/uL (0.0-0.2); Eosinophils # 0.5 10*3/uL (0.0-0.87); Eosinophils % 3.4 % (0.00-10.9); Hematocrit 26.5 VOL% (35.7-47.0); Immature Granulocytes % 1.2 %; Immature Granulocytes Absolute 0.16 #; Lymphocytes # 1.1 10*3/uL (1.4-4.0); Lymphocytes % 7.8 % (21.3-54.2); Mean Corpuscular HGB Conc 35.1 GM/DL (32-36); Mean Corpuscular Volume 94.3 FL (87-102); Mean Platelet Volume 9.7 FL (9.6-12.0); Monocytes # 0.7 10*3/uL (0.11-0.8); Monocytes % 5.1 % (1.7-12.7); Neutrophils % 82.1 % (38.7-73.9); Red Cell Distribution Width 16.1 % (9.3-17.3); White Blood Count 13.7 T/CUMM (4-12)
[2022-01-14 06:53] LABS: Hemoglobin 9.3 GM/DL (12.0-16.0); Platelet Count 151 T/CUMM (130-400); Red Blood Count 2.81 MC/CUMM (3.8-5.5)
[2022-01-14 07:30] LABS: Calcium 8.6 MG/DL (8.5-10.1); Osmolality,Calculated 277.9 MOS/KG (273-304); Potassium 2.9 MMOL/L (3.5-5.1)
[2022-01-14] MEDS: PANTOPRAZOLE 40 MG TABLET PO SCH (10:02)
[2022-01-14] MEDS: CHOLESTYRAMINE/ASPARTAME 4 GM PACK PO SCH ×2 (10:03→21:02)
[2022-01-14] MEDS: POTASSIUM CHLORIDE RIDER 10 MEQ/100 ML PREMIX IV PRN ×5 (10:07→16:07)
[2022-01-14] MEDS ORDERED: DIPHENOXYLATE/ATROPINE 2.5-0.025 MG TABLET PO PRN (13:05)
[2022-01-14] MEDS: LOPERAMIDE 2 MG CAPSULE PO SCH ×2 (14:57→21:00)
[2022-01-15] MEDS: DEXTROSE 5% NACL 0.45% 1,000 ML IV SCH ×4 (01:40→21:37)
[2022-01-15] MEDS: LOPERAMIDE 2 MG CAPSULE PO SCH ×4 (03:36→20:09)
[2022-01-15 05:43] LABS: Basophils # 0.1 10*3/uL (0.0-0.2); Basophils % 0.5 % (0.0-0.8); Eosinophils # 0.6 10*3/uL (0.0-0.87); Eosinophils % 5.4 % (0.00-10.9); Hematocrit 26.8 VOL% (35.7-47.0); Hemoglobin 9.1 GM/DL (12.0-16.0); Immature Granulocytes % 0.8 %; Immature Granulocytes Absolute 0.09 #; Lymphocytes # 1.3 10*3/uL (1.4-4.0); Lymphocytes % 11.2 % (21.3-54.2); Mean Corpuscular Volume 97.8 FL (87-102); Mean Platelet Volume 9.7 FL (9.6-12.0); Monocytes # 0.8 10*3/uL (0.11-0.8); Monocytes % 6.9 % (1.7-12.7); Neutrophils % 75.2 % (38.7-73.9); Platelet Count 145 T/CUMM (130-400); Red Blood Count 2.74 MC/CUMM (3.8-5.5); Red Cell Distribution Width 16.4 % (9.3-17.3); White Blood Count 11.6 T/CUMM (4-12)
[2022-01-15 06:29] LABS: Bilirubin,Total 0.5 MG/DL (0.20-1.00); Calcium 9.2 MG/DL (8.5-10.1); Osmolality,Calculated 268.8 MOS/KG (273-304); Potassium 3.6 MMOL/L (3.5-5.1); Total Protein 7.2 G/DL (6.4-8.2)
[2022-01-15] MEDS ORDERED: MAGNESIUM SULF RIDER 2 GM/50 ML PREMIX IV ONE (08:56)
[2022-01-15] MEDS: PANTOPRAZOLE 40 MG TABLET PO SCH (09:35)
[2022-01-15] MEDS: ESCITALOPRAM 10 MG TABLET PO SCH (09:36)
[2022-01-15] MEDS: CHOLESTYRAMINE/ASPARTAME 4 GM PACK PO SCH ×2 (09:41→21:37)
[2022-01-16] MEDS: LOPERAMIDE 2 MG CAPSULE PO SCH ×2 (02:09→09:31)
[2022-01-16] MEDS: DEXTROSE 5% NACL 0.45% 1,000 ML IV SCH ×2 (03:41→14:21)
[2022-01-16 04:39] LABS: Basophils % 0.2 % (0.0-0.8); Eosinophils # 0.5 10*3/uL (0.0-0.87); Eosinophils % 5.6 % (0.00-10.9); Hematocrit 25.1 VOL% (35.7-47.0); Hemoglobin 8.5 GM/DL (12.0-16.0); Immature Granulocytes % 0.7 %; Immature Granulocytes Absolute 0.06 #; Mean Corpuscular HGB Conc 33.9 GM/DL (32-36); Mean Corpuscular Volume 98.8 FL (87-102); Mean Platelet Volume 9.7 FL (9.6-12.0); Monocytes # 0.6 10*3/uL (0.11-0.8); Monocytes % 7.4 % (1.7-12.7); Neutrophils % 74.1 % (38.7-73.9); Platelet Count 125 T/CUMM (130-400); Red Blood Count 2.54 MC/CUMM (3.8-5.5); Red Cell Distribution Width 16.3 % (9.3-17.3); White Blood Count 8.4 T/CUMM (4-12)
[2022-01-16 04:59] LABS: Albumin 2.7 G/DL (3.4-5.0); Bilirubin,Total 0.5 MG/DL (0.20-1.00); Calcium 8.5 MG/DL (8.5-10.1); Osmolality,Calculated 265.5 MOS/KG (273-304); Potassium 3.6 MMOL/L (3.5-5.1); Total Protein 6.5 G/DL (6.4-8.2)
[2022-01-16] MEDS: PANTOPRAZOLE 40 MG TABLET PO SCH (09:31)
[2022-01-16] MEDS: ESCITALOPRAM 10 MG TABLET PO SCH (09:31)
[2022-01-16] MEDS: CHOLESTYRAMINE/ASPARTAME 4 GM PACK PO SCH (09:33)
[2022-01-16 12:27] VITALS: BP 116/67
[2022-01-16] MEDS ORDERED: HEPARIN LOCK FLUSH 500 UNIT/5 ML SYRINGE IV PRN (14:17)
[2022-01-16] MEDS ORDERED: HEPARIN LOCK FLUSH 500 UNIT/5 ML SYRINGE IV SCH (21:00)
== END 2022-01-16 14:57 | disposition home health service (06) | DRG 683 ==
LOC: N.ED 11:12 → N.EDINP 13:56 → SUATTDRO 13:56 → N.EDINP 15:58 → N.5E 16:06
PROVIDERS: ADMIT Internal Medicine; ATTEND Family Medicine